=== PATIENT | male | born 1975 | race Caucasian/White ===

== ENCOUNTER 2024-05-22 20:48 | Emergency (ER) | payer OTHER ==
[~2024-05-22 20:48] MED LIST: Iopamidol-370 76% 500 ML MDV (1 ML CHARGE) ONE
[2024-05-22] MEDS ORDERED: Boostrix 0.5 ML (Tdap) VIAL (>/=7 yrs of age) ONE (20:55)
[2024-05-22] MEDS ORDERED: CEFAZOLIN 2 GM VIAL ONE (20:55)
[2024-05-22] MEDS ORDERED: Sodium Chloride 0.9% 100 ML ONE (20:55)
[2024-05-22] MEDS ORDERED: Fentanyl CADD 100 ML IV SCH (21:00)
[2024-05-22] MEDS ORDERED: fentaNYL 50 mcg/mL 1 mL Vial ONE (21:02)
[2024-05-22 21:21] LABS: Hematocrit 44.8 % (42.0-52.0); Hemoglobin 14.8 g/dL (14.0-18.0); Mean Corpuscular Hemoglobin 28.5 pg (27.0-31.0); Mean Corpuscular Volume 86.2 fL (78.0-98.0); Mean Platelet Volume 8.7 fL (7.4-10.4); Platelet Count 484 10x3/uL (130-400); RBC Distribution Width 12.3 % (11.5-14.5)
[2024-05-22 21:25] LABS: Acetaminophen Less than 10 mcg/mL (Less than 10); Alcohol 325.6 mg/dL (Less than 10); Salicylate Less than 8.0 mg/dL (Less than 8.0)
[2024-05-22 21:26] LABS: ALT (SGPT) 43 U/L (8-55); AST (SGOT) 41 U/L (5-34); Albumin 4.1 g/dL (3.5-5.0); Alkaline Phosphatase 72 U/L (40-110); Anion Gap 16 mmol/L (10-20); BUN (Urea Nitrogen) 11 mg/dL (8.9-20.6); Bilirubin, Total 0.2 mg/dL (0.2-1.2); Calc. Creatinine Clearance 0 mL/min (70-130); Calcium 8.2 mg/dL (7.8-10.44); Carbon Dioxide 19 mmol/L (22-29); Chloride 109 mmol/L (98-107); Estimated GFR 77; Globulin 2.7 g/dL (2.4-3.5); Glucose 135 mg/dL (70-105); Lipase 47 U/L (8-78); Potassium 3.4 mmol/L (3.5-5.1); Protein, Total 6.8 g/dL (6.0-8.3); Sodium 141 mmol/L (136-145)
[2024-05-22 21:31] LABS: Troponin I Less than 0.010 ng/mL (< 0.028)
[2024-05-22 21:36] LABS: Actual Bicarbonate (HCO3a) 18.5 mEq/L (22-28); Analyzer IN Cardio ER; Base Excess (BEa) -8.6 mEq/L (-2.0 to +3.0); CO2 Tension 44.1 mmHg (35.0-45.0); Calcium, Ionized (arterial) 1.07 mmol/L (1.12-1.30); Carboxyhemoglobin (COHb) 0.3 gm% (0.0-3.0); Hematocrit-ABG 39 % (42.0-52.0); Hemoglobin (Hb) 13.4 g/dL (14.0-18.0); O2 Tension (PaO2), arterial 139.1 mmHg (80.0-100.0); Potassium - ABG Lab 3.28 mmol/L (3.70-5.30); pH, Arterial 7.241 (7.35-7.45)
[2024-05-22 21:50] LABS: Eosinophils 2 % (0-10); Lymphocytes 33 % (21-51); Monocytes 4 % (0-10); Neutrophil 56 % (42-75); Platelet Adequacy Comment Platelets Increased; Reactive Lymphocytes 4 % (0-10)
[2024-05-22 22:19] LABS: Bacteria/HPF None Seen HPF (None Seen); Bilirubin Negative (Negative); Blood, Urine 1+ (Negative); CAUTI Indications for Culture Alt mental st,lethar; Clarity Clear (Clear); Glucose, Urine (Dipstick) Normal (Negative); Ketone, Urine Negative (Negative); Leukocyte Negative Leu/uL (Negative); Nitrite Negative (Negative); Protein, Urine (Dipstick) 30 mg/dL (Neg-Trace); RBC/HPF 0-3 HPF (0-3); Specific Gravity, Urine 1.009 (1.002-1.036); Squamous Epithelial None Seen HPF (0-3); Urobilinogen Normal mg/dL (Less than 2); WBC/HPF 0-3 HPF (0-3); pH, Urine 5.5 (5.0-9.0)
[2024-05-22 22:21] LABS: Urine Culture Reflex No No
[2024-05-22 22:24] LABS: Amphetamine Not Detected (NotDetected); Barbiturates Screen Not Detected (NotDetected); Benzodiazepine Screen Not Detected (NotDetected); Cocaine Metabolite Screen Not Detected (NotDetected); Methadone Not Detected (NotDetected); Methamphetamine Not Detected (NotDetected); Opiate Screen Not Detected (NotDetected); Oxycodone Screen Not Detected (NotDetected); Phencyclidine (PCP) Not Detected (NotDetected); THC/Cannabinoid Screen Not Detected (NotDetected); Tricyclic Screen Not Detected (NotDetected)
[2024-05-22] MEDS ORDERED: Midazolam HCl 2 mg/2 ml Vial ONE (22:57)
[2024-05-23] MEDS ORDERED: Midazolam HCl 2 mg/2 ml Vial ONE (00:36)
== END 2024-05-23 01:17 | disposition short-term general hospital (02) ==
LOC: EDBD 20:48 → ERS 20:48
DX: S06.5X0A Traumatic subdural hemorrhage without loss of consciousness, initial encounter (principal); S02.40DA Maxillary fracture, left side, initial encounter for closed fracture; S82.832A Other fracture of upper and lower end of left fibula, initial encounter for closed fracture; S02.31XA Fracture of orbital floor, right side, initial encounter for closed fracture; S93.05XA Dislocation of left ankle joint, initial encounter; Z55.6 Problems related to health literacy; V02.99XA Pedestrian with other conveyance injured in collision with two- or three-wheeled motor vehicle, unspecified whether traffic or nontraffic accident, initial encounter
CPT/HCPCS: 29515; 31500; 70450; 70486; 70498; 71045; 71260; 72125; 74177; 80053; 80306; 80307; 81001; 82805; 83605; 83690; 84484; 85025; 86850; 86900; 86901; 90471; 90715; 93005; 94002; 96365; 96366; 96375; 96376; G0390; J2250; J3010; Q9967